=== PATIENT | male | born 1940 | race Two or more races ===

== ENCOUNTER 2024-10-23 03:18 | Emergency (ER) | payer OTHER ==
[~2024-10-23] VITALS: Ht 170.2 cm; Wt 86.2 kg
[2024-10-23 03:44] VITALS: TEMP 98.2
[2024-10-23] MEDS ORDERED: LIDOCAINE 5% (PATCH) 1 EA PATCH TP ONE (04:14)
[2024-10-23] MEDS ORDERED: KETOROLAC TROMETHAMINE 15 MG/ML VIAL ONE (04:14)
[2024-10-23] MEDS ORDERED: ACETAMINOPHEN 325 MG TABLET ONE (04:14)
[2024-10-23] MEDS ORDERED: METHOCARBAMOL (500MG) 500 MG TABLET ONE (04:15)
[2024-10-23] MEDS: IV NS 0.9% 1,000 ML BAG IV ONE (04:29)
[2024-10-23] MEDS: ACETAMINOPHEN 325 MG TABLET PO ONE (04:30)
[2024-10-23] MEDS: KETOROLAC TROMETHAMINE 15 MG/ML VIAL IV ONE (04:30)
[2024-10-23] MEDS: LIDOCAINE 5% (PATCH) 1 EA PATCH TP SCH (04:31)
[2024-10-23] MEDS: METHOCARBAMOL (750MG) 750 MG TABLET PO SCH (04:31)
[2024-10-23 04:41] LABS: BASOPHILS % (AUTO) 0.5 % (0.0-2.0); EOSINOPHILS # (AUTO) 0.1 K/uL (0.0-0.7); EOSINOPHILS % (AUTO) 1.3 % (0.0-6.0); HEMATOCRIT 34 % (39-51); HEMOGLOBIN 11.4 g/dL (13.5-17.5); LYMPHOCYTES # (AUTO) 0.9 K/uL (0.8-4.8); LYMPHOCYTES % (AUTO) 12.3 % (20.0-44.0); MEAN CORPUSCULAR HEMOGLOBIN 28 PG (26.0-33.0); MEAN CORPUSCULAR HGB CONC 33 g/dl (31.0-36.0); MEAN CORPUSCULAR VOLUME 83 fL (80-96); MONOCYTES # (AUTO) 0.5 K/uL (0.1-1.30); MONOCYTES % (AUTO) 6.4 % (2.0-12.0); NEUTROPHILS # (AUTO) 5.7 K/uL (1.8-8.9); NEUTROPHILS % (AUTO) 79.5 % (43.0-81.0); PLATELET COUNT (AUTO) 223 K/uL (150-450); RED BLOOD CELL COUNT(AUTO) 4.15 MIL/uL (4.5-6.0); RED CELL DISTRIBUTION WIDTH 15.1 % (11.5-15.0); WHITE BLOOD COUNT (AUTO) 7.1 K/uL (4.3-11.0)
[2024-10-23 04:49] LABS: CREATININE 1.1 mg/dL (0.6-1.3); POTASSIUM 4.6 mmol/L (3.5-5.1)
[2024-10-23 04:54] LABS: ALBUMIN 3.7 g/dL (3.4-5.0); BILIRUBIN,DIRECT 0.1 mg/dL (0.0-0.2); BILIRUBIN,TOTAL 0.2 mg/dL (0.2-1.0); TOTAL PROTEIN, SERUM 6.8 g/dL (6.4-8.2)
[2024-10-23 06:22] LABS: APPEARANCE,URINE CLEAR (CLEAR); BILIRUBIN,URINE NEGATIVE (NEGATIVE); BLOOD, URINE NEGATIVE Ery/uL (NEGATIVE); COLOR,URINE YELLOW (YELLOW); KETONES,URINE NEGATIVE (NEGATIVE); LEUKOCYTE ESTERASE ,URINE NEGATIVE (NEGATIVE); NITRITE, URINE NEGATIVE (NEGATIVE); PROTEIN,URINE NEGATIVE (NEGATIVE); UGLUCOSE NEGATIVE (NEGATIVE); UROBILINOGEN,URINE 0.2 EU/dL (0.2)
[2024-10-23] MEDS ORDERED: TIZA4TAB5 PO (06:34)
[2024-10-23 07:52] VITALS: BP 128/74; O2SAT 97
== END 2024-10-23 07:52 | disposition home or self-care (01) ==
LOC: ER 03:35
DX: M54.50 Low back pain, unspecified (principal); I10 Essential (primary) hypertension; E11.9 Type 2 diabetes mellitus without complications
CPT/HCPCS: 99285; 74176; 96374; 96361; 85025; 80048; 80076; 81003; 36415; J1885